=== PATIENT | male | born 2000 | race Caucasian/White ===

== ENCOUNTER 2018-02-25 19:14 | Emergency (ER) | payer OTHER ==
[~2018-02-25] VITALS: Ht 177.8 cm; Wt 80.5 kg
[2018-02-25 19:16] VITALS: BP 126/78
[2018-02-25] MEDS ORDERED: PLEASE ENTER ALLERGIES MC SCH (20:00)
[2018-02-25] MEDS ORDERED: LIDOCAINE-MPF 1%, 5ML INFIL ONE (20:00)
[2018-02-25] MEDS ORDERED: LIDOCAINE-MPF 1%, 5ML ONE (20:11)
== END 2018-02-25 21:51 | disposition home or self-care (01) ==
LOC: ED 21:50
DX: S63.296A Dislocation of distal interphalangeal joint of right little finger, initial encounter (principal); J45.909 Unspecified asthma, uncomplicated; W19.XXXA Unspecified fall, initial encounter; Y93.89 Activity, other specified; Y92.89 Other specified places as the place of occurrence of the external cause; Y99.8 Other external cause status
CPT/HCPCS: 26770; 99285